=== PATIENT | female | born 1940 | race Two or more races ===

== ENCOUNTER 2017-10-20 03:38 | Inpatient (IN) | payer OTHER, MEDICARE ==
[~2017-10-20] VITALS: Ht 160 cm; Wt 93.8 kg
[2017-10-20] MEDS ORDERED: ALUMINUM/MAGNESIUM/SIMETH 30 ML CUP PO PRN (05:15)
[2017-10-20] MEDS ORDERED: MAGNESIUM HYDROXIDE SUSP 30 ML CUP PO PRN (05:15)
[2017-10-20] MEDS ORDERED: LORazepam 2 MG/ML VIAL - age > 65 yrs IM PRN (05:15)
[2017-10-20] MEDS ORDERED: LORazepam 0.5 MG TAB age > 65 yrs PO PRN (05:15)
[2017-10-20] MEDS ORDERED: ACETAMINOPHEN 325 MG TAB PO PRN (05:15)
[2017-10-20 05:17] VITALS: BP 165/73; PULSE 52; RESP 18; TEMP 97.7; O2SAT 96
[2017-10-20] MEDS ORDERED: MIRTA15 PO ×2 (06:04→15:38)
[2017-10-20] MEDS ORDERED: QUET1TAB7 PO (06:05)
[2017-10-20] MEDS ORDERED: LABE100T2 PO ×2 (06:06→15:38)
[2017-10-20] MEDS: LABETALOL HCL 100 MG TAB PO SCH ×2 (11:00→21:10)
[2017-10-20] MEDS ORDERED: diphenhydrAMINE HCL 50 MG CAP PO PRN (11:30)
--- NOTE | 2017-10-20 12:55 | PD.CONS ---
HPI Service [facility] Hospitalists Consult Requested By Reason for Consult Medical management Primary Care Physician Unknown Diagnoses: History of Present Illness 77-year-old female with PMH of HTN, DM, hypothyroidism, schizophrenia, and depression admitted to inpatient psychiatry unit after making statements of harming herself. Patient apparently got into an argument with daughter and made statement "I should just kill myself then I should just kill myself". Daughter was concerned as patient has had prior attempts of suicide with medication ingestion. Police was called and according to repot patient was noted to have slurred speech and was stumbling. She was transported to [facility] for evaluation of possible OD. She was subsequently medically cleared and has been admitted to [facility] psych unit for further evaluation. [facility] consulted to assist with medical management. Patient is a pleasant female who is Lithuanian speaking. She is ambulating without assistance and appears to be in no acute distress. She is examined in her room. She is able to provide me with her medical history as well as some of her medications, but is not sure of dosing. She repots checking her blood sugar three times a day with insulin sliding scale coverage. She also reports taking insulin from a pen that she does once daily. She denies any fevers, chills, nausea, vomiting, diarrhea, headache, dizziness, light headedness, cough, SOB, chest pain, dysuria or constipation. Review of Systems Except as stated in HPI: all other systems reviewed are Neg Past Family Social History Allergies: Coded Allergies: No Known Allergies (Verified Allergy, Unknown, 10/20/17) Past Medical History DM hypothyroidism HTN schizophrenia depression Past Surgical History Right knee replacement Appendectomy Cholecystectomy Tonsillectomy Reported Medications Reported Meds & Active Scripts Active Reported Lantus Solostar Pen Inj (Insulin Glargine) 300 Unit/3 Ml Pen 50 Units SQ DAILY NEB Levothyroxine (Levothyroxine Sodium) 88 Mcg Tab 88 Mcg PO DAILY Glipizide ER (Glipizide) 10 Mg Valentina 20 Mg PO DAILY Take with breakfast or first main meal of the day Levemir Inj (Insulin Detemir) 1,000 unit/ 10 ML Vial 25 Units SQ HS Do not mix with any other Insulin. Abilify (Aripiprazole) 10 Mg Tab 5 Mg PO DAILY Amlodipine-Valsartan 10-160 Mg Tab 1 Tab PO DAILY Metoprolol Tartrate 50 Mg Tab 50 Mg PO BID Mirtazapine 15 Mg Tab 15 Mg PO HS Zoloft (Sertraline HCl) 100 Mg Tab 150 Mg PO DAILY Labetalol (Labetalol HCl) 100 Mg Tab 100 Mg PO BID Lipitor (Atorvastatin Calcium) 80 Mg Tab 80 Mg PO HS Seroquel (Quetiapine Fumarate) 200 Mg Tab 325 Mg PO HS Quetiapine (Quetiapine Fumarate) 25 Mg Tab 25 Mg PO HS Mirtazapine 15 Mg Tab 15 Mg PO HS Active Ordered Medications Current Medications Medications (Trade) Dose Ordered Sig/Eugenia Route Start Time Stop Time Status Last Admin (Ativan) 0.5 mg Q12H PRN PO 10/20/17 05:15 (Ativan Inj) 0.5 mg Q12H PRN IM 10/20/17 05:15 (Tylenol) 650 mg Q4H PRN PO 10/20/17 05:15 (Milk Of Magnesia Liq) 30 ml DAILY PRN PO 10/20/17 05:15 (Mag-Al Plus Susp Liq) 30 ml Q6H PRN PO 10/20/17 05:15 (Trandate) 100 mg BID PO 10/20/17 11:00 10/20/17 11:00 (Remeron) 15 mg HS PO 10/20/17 21:00 (SEROquel) 25 mg HS PO 10/20/17 21:00 (Benadryl) 50 mg HS PRN PO 10/20/17 11:30 (D50w (Vial) Inj) 50 ml UNSCH PRN IV PUSH 10/20/17 13:30 (Glucagon Inj) 1 mg UNSCH PRN OTHER 10/20/17 13:30 (NovoLOG SUPPLEMENTAL SCALE) 1 ACHS SLIDING SCALE SQ 10/20/17 17:00 Family History Father: heart disease (CABG) Social History Denies tobacco, alcohol, or illicit drug use Physical Exam Vital Signs Vital Signs Date Time Temp Pulse Resp B/P (MAP) Pulse Ox O2 Delivery O2 Flow Rate FiO2 10/20/17 05:17 97.7 52 18 165/73 (103) 96 Physical Exam GENERAL: This is an obese, well-developed female, in no apparent distress. SKIN: Cool and dry. HEAD: Atraumatic. Normocephalic. EYES: Pupils equal round and reactive. Extraocular motions intact. No scleral icterus. No injection or drainage. ENT: Nose without bleeding, purulent drainage. Throat without erythema. Airway patent. NECK: Trachea midline. No JVD. Supple. CARDIOVASCULAR: Regular rate and rhythm without murmurs, gallops, or rubs. RESPIRATORY: Clear to auscultation. Breath sounds equal bilaterally. No wheezes , rales, or rhonchi. GASTROINTESTINAL: Abdomen soft, non-tender, nondistended. Normoactive bowel sounds. MUSCULOSKELETAL: Extremities without clubbing, cyanosis, or edema. No joint tenderness, effusion, or edema noted. NEUROLOGICAL: Awake and alert. Cranial nerves II through XII grossly intact. Motor and sensory grossly within normal limits. Five out of 5 muscle strength in all muscle groups. Normal speech. Assessment and Plan Assessment and Plan 77-year-old female with PMH of HTN, DM, hypothyroidism, schizophrenia, and depression admitted to inpatient psychiatry unit after making statements of harming herself. Patient apparently got into an argument with daughter and made statement "I should just kill myself then I should just kill myself". Daughter was concerned as patient has had prior attempts of suicide with medication ingestion. Police was called and according to repot patient was noted to have slurred speech and was stumbling. She was transported to [facility] for evaluation of possible OD. She was subsequently medically cleared and has been admitted to [facility] for further evaluation. [facility] consulted to assist with medical management. Depression - Treatment plan per psychiatry Diabetes mellitus - Med rec with Lantus 50 units daily, Levemir 25 units HS, Glipizide 20mg daily - 1800 ADA diet, Accu checks ACHS with NovoLog ISS - BS today around 4pm was 98. Hold off on long acting insulin, continue monitoring BS and adjust accordingly. - Check hemoglobin A1C HTN - Med rec. with Labetalol 100mg BID, Metoprolol 50mg BID, and Amlodipine- Valsartan 10-160mg daily - Labetalol 100mg BID resumed - BP recorded in EMR 165/73 pulse 52. BP this afternoon 180/86 pulse 59. - Will continue Valsartan, PRN po hydralazine for SBP>18 or DPB>100 - Monitor BP and HR and adjust meds accordingly Hypothyroidism - Continue home dose of Levothyroxine DVT prophylaxis-ambulation Discussed with nurse. Thank you for this consultation, will continue to follow along. Demetrius Hutchinson Oct 20, 2017 12:55
[2017-10-20] MEDS ORDERED: DEXTROSE 50% IN WATER 50 ML VIAL(D50) IV PUSH PRN (13:30)
[2017-10-20] MEDS ORDERED: GLUCAGON 1 MG/ML VIAL OTHER PRN (13:30)
--- NOTE | 2017-10-20 14:23 | HHI.PYPN ---
Subjective Remarks The patient is a 77 year-old [place] woman, admitted on the Gonzalez act after stated that she wants to kill herself by overdosing, she has psychiatric history of depression and schizophrenia, medical history of hypertension, diabetes. Consulted to me for second opinion. On psychiatric evaluation today the patient is calm, cooperative, she reports that she does not want to live anymore "if my is going to be in a correction and I have to live alone the rest of my life". Patient reports feeling hopeless, helpless, very depressed. She reports suicidal ideation, no plan at the moment. She is oriented 3, denies visual and auditory hallucinations. She reports difficulty sleeping at night, low energy, helplessness, hopelessness, increased sense of guiltiness, generalized pessimism. She denies the use of alcohol and illegal drugs. Mental Status Examination Appearance: Appropriate Consciousness: Alert Orientation: x4 Motor Activity: Normal gait Speech: Unremarkable Language: Adequate Fund of Knowledge: Adequate Attention and Concentration: Adequate Memory: Unremarkable Mood: Appropriate, Sad Affect: Sad Thought Process & Associations: Intact Thought Content: Appropriate Hallucination Type: None Delusion Type: None Suicidal Ideation: Yes Suicidal Plan: No Suicidal Intention: No Homicidal Ideation: No Homicidal Plan: No Homicidal Intention: No Insight: Poor Judgment: Poor Results Vitals/IOs Vital Signs Date Time Temp Pulse Resp B/P (MAP) Pulse Ox O2 Delivery O2 Flow Rate FiO2 10/20/17 05:17 97.7 52 18 165/73 (103) 96 Intake and Output 10/20/17 10/20/17 10/21/17 08:00 16:00 00:00 Intake Total 120 ml 240 ml Balance 120 ml 240 ml Assessment & Plan Problem List: (1) Adjustment disorder with depressed mood ICD Codes: F43.21 - Adjustment disorder with depressed mood Assessment & Plan: I have seen and examined this patient, reviewed documentation, discussed the case with Dr. Baker, I agree and concur with his assessment and plan. Consult appreciated. Assessment & Plan Estimated LOS: days Justification for Cont. Inpt. Patient is acutely suicidal, she needs to continue psychiatric hospitalization for stabilization and safety. Keven Schmitt MD Oct 20, 2017 14:23
--- NOTE | 2017-10-20 15:11 | EKG ---
Date Performed: 10/20/2017 Time Performed: 11:43:52 PTAGE: 77 years EKG: Sinus rhythm WITH SINUS ARRHYTHMIA NONSPECIFIC ST & T-WAVE ABNORMALITY Since the previous tracing, no significant change noted BORDERLINE ECG PREVIOUS TRACING : 04/28/2000 18.47 DOCTOR: Pb Corrales Interpretating Date/Time 10/20/2017 15:09:11
[2017-10-20] MEDS ORDERED: SERO200T PO (15:38)
[2017-10-20] MEDS ORDERED: ABIL10TA8 PO (15:38)
[2017-10-20] MEDS ORDERED: AMLO-168 PO (15:38)
[2017-10-20] MEDS ORDERED: LEVO88TA2 PO (15:38)
[2017-10-20] MEDS ORDERED: LANTINJ SQ (15:38)
[2017-10-20] MEDS ORDERED: METO50TA PO (15:38)
[2017-10-20] MEDS ORDERED: ZOLO100T PO (15:38)
[2017-10-20] MEDS ORDERED: LEVEMIR SQ (15:38)
[2017-10-20] MEDS ORDERED: LIPI80TA PO (15:38)
[2017-10-20] MEDS ORDERED: GLIP1TAB51 PO (15:38)
[2017-10-20] MEDS: INSULIN ASPART SUPPLEMENTAL SCALE SQ SCH ×2 (15:45→21:00)
[2017-10-20 16:00] VITALS: BP 182/86; PULSE 59; O2SAT 93
--- NOTE | 2017-10-20 16:48 | HHI.HP ---
Provisional Diagnosis Admission Date Oct 20, 2017 at 04:37 [place]. Adjustment disorder with depressed mood Certification of Person's Competence To Provide Express and Informed Consent I have personally examined Yareli Sibley , a person being served at [facility] on, Oct 20, 2017 16:48. Express and informed consent means consent voluntarily given in writing, by a competent person, after sufficient explanation and disclosure of the subject matter involved to enable the person to make a knowing and willful decision without any element of force, fraud, deceit, duress, or other form of constraint or coercion. This person is 18 years of age or older, is not now known to be incompetent to consent to treatment with a guardian advocate, and does not have a health care surrogate or proxy currently making medical treatment decisions. I have found this person to be one of the following: [] Competent to provide express and informed consent, as defined above, for voluntary admission to this facility and is competent to provide express and informed consent for treatment. He/she has the consistent capacity to make well reasoned, willful, and knowing decisions concerning his or her medical or mental health treatment. The person fully and consistently understands the purpose of the admission for examination/placement and is fully capable of personally exercising all rights assured under [place]xxx] Incompetent to provide express and informed consent to voluntary admission , and this is incompetent to provide express and informed consent to treatment. The person must be transferred to involuntary status and a petition for a guardian advocate filed with the Circuit Court. [] Refusing to provide express and informed consent to voluntary admission but is competent to provide express and informed consent for treatment. The person must be discharged or transferred to involuntary status. Form shall be completed within 24 hours of a person's arrival at the receiving facility and filed in the clinical record of each person: 1. Admitted on a voluntary basis 2. Permitted to provide express and informed consent to his/her own treatment 3. Allowed to transfer from involuntary to voluntary status 4. Prior to permitting a person to consent to his or her own treatment after having been previously found incompetent to consent to treatment. History of Present Illness Capacity: Has Capacity HPI Patient is a 77 y/o woman, , domiciled alone, unemployed, supported by alf benefits, with past psychiatric history of schizophrenia and depression, three previous psychiatric admissions (last 3 weeks ago in [place] after suicide attempt), one previous suicide attempt, no history of self injurious behavior, with past medical history of diabetes who was brought in under [place] Act after arguement with daughter and stating that she should just kill herself which patient was admitted to the inpatient psychiatry unit for further evaluation and management. Patient was found lying on hospital bed, calm and cooperative with interview. Patient states that she was recently admitted to a hospital in [place] after a suicide attempt via overdose with 28 tablets of Seroquel which at that time had also planned with her to overdose together which DCF got involved and subsequently removed the into an anonymous fpc and the patient was admitted psychiatrically. Upon her discharge patient returned home, followed up wtih Dr. Childress two weeks ago and prior to this admission had an argument with her daughter which she was wanting to visit her . She states that her has dementia and daughter had argued that the patient tried to kill her . Patient recalls her overdose which she had planned to take 28 tablets and had given her unknown amount of tablets as well to end their lives together. After the argument patient stated, "I done care if i " but denies having planned to end her life or intent to do so this time. She reports feeling depressed because she wants to see her and have him home. At this time she denies SI, HI, AVH and is alert and oriented x 3. Family psychiatric history: denies Past psychiatric history: prior diagnosis of schizophrenia, depression, three prior psychiatric admissions (last three weeks ago in [place]), one prior suicide attemp via overdose as stated above, no self injurious behvavior. Outpatient psychiatrist, Dr. Childress, last seen two weeks ago. Substance use history: denies Past medical history: DM Allergies: NKDA Social history: , lives alone, unemployed on alf benefits, no access to firearms. Review of Systems Except as stated in HPI: all other systems reviewed are Neg Past Psych History Violence risk - others (6 mos) low Violence risk - self (6 mos) elevated due to recent suicide attempt and recent suicidal statement Substance Abuse History Drugs/Alcohol past 12 months denies Past Family Social History Coded Allergies: No Known Allergies (Verified Allergy, Unknown, 10/20/17) Reported Medications Insulin Glargine Inj (Lantus Solostar Pen Inj) 300 Unit/3 Ml Pen, 50 UNITS SQ DAILY NEB for Blood Sugar Management, PEN 0 Refills 10/20/17 Levothyroxine (Levothyroxine) 88 Mcg Tab, 88 MCG PO DAILY for Thyroid, #30 TAB 0 Refills 10/20/17 Glipizide ER (Glipizide ER) 10 Mg Valentina, 20 MG PO DAILY for Blood Sugar Management, #30 TAB 0 Refills Take with breakfast or first main meal of the day 10/20/17 Insulin Detemir Inj (Levemir Inj) 1,000 unit/ 10 ML Vial, 25 UNITS SQ HS for Blood Sugar Management, VIAL 0 Refills Do not mix with any other Insulin. 10/20/17 Aripiprazole (Abilify) 10 Mg Tab, 5 MG PO DAILY, #30 TAB 0 Refills 10/20/17 Amlodipine-Valsartan (Amlodipine-Valsartan) 10-160 Mg Tab, 1 TAB PO DAILY for Blood Pressure Management, #30 TAB 0 Refills 10/20/17 Metoprolol Tartrate (Metoprolol Tartrate) 50 Mg Tab, 50 MG PO BID, #60 TAB 0 Refills 10/20/17 Mirtazapine (Mirtazapine) 15 Mg Tab, 15 MG PO HS for Depression Control, #30 TAB 0 Refills 10/20/17 Sertraline (Zoloft) 100 Mg Tab, 150 MG PO DAILY, #30 TAB 0 Refills 10/20/17 Labetalol (Labetalol) 100 Mg Tab, 100 MG PO BID for Blood Pressure Management, TAB 0 Refills 10/20/17 Atorvastatin (Lipitor) 80 Mg Tab, 80 MG PO HS for Cholesterol Management, #30 TAB 0 Refills 10/20/17 Quetiapine (Seroquel) 200 Mg Tab, 325 MG PO HS, #30 TAB 0 Refills 10/20/17 Quetiapine (Quetiapine) 25 Mg Tab, 25 MG PO HS, #30 TAB 0 Refills 10/20/17 Mirtazapine (Mirtazapine) 15 Mg Tab, 15 MG PO HS for Depression Control, #30 TAB 0 Refills 10/20/17 Current Medications Medications (Trade) Dose Ordered Sig/Eugenia Route Start Time Stop Time Status Last Admin (Ativan) 0.5 mg Q12H PRN PO 10/20/17 05:15 (Ativan Inj) 0.5 mg Q12H PRN IM 10/20/17 05:15 (Tylenol) 650 mg Q4H PRN PO 10/20/17 05:15 (Milk Of Magnesia Liq) 30 ml DAILY PRN PO 10/20/17 05:15 (Mag-Al Plus Susp Liq) 30 ml Q6H PRN PO 10/20/17 05:15 (Trandate) 100 mg BID PO 10/20/17 11:00 10/20/17 11:00 (Remeron) 15 mg HS PO 10/20/17 21:00 (SEROquel) 25 mg HS PO 10/20/17 21:00 (Benadryl) 50 mg HS PRN PO 10/20/17 11:30 (D50w (Vial) Inj) 50 ml UNSCH PRN IV PUSH 10/20/17 13:30 (Glucagon Inj) 1 mg UNSCH PRN OTHER 10/20/17 13:30 (NovoLOG SUPPLEMENTAL SCALE) 1 ACHS SLIDING SCALE SQ 10/20/17 17:00 10/20/17 15:45 (Lipitor) 80 mg HS PO 10/20/17 21:00 (Synthroid) 88 mcg DAILY@0600 PO 10/21/17 06:00 (Diovan) 160 mg DAILY PO 10/21/17 09:00 (Apresoline) 25 mg Q8HR PRN PO 10/20/17 16:30 Family Psych History denies Social History , lives alone, unemployed on alf benefits, no access to firearms. Patient's Strengths (min. 2) verbal and communicative Physical Exam Not noted to be in acute distress, no gross motor abnormalities, no tremor or EPS, no psychomotor agitation or retardation. Vital Signs Vital Signs Date Time Temp Pulse Resp B/P (MAP) Pulse Ox O2 Delivery O2 Flow Rate FiO2 10/20/17 16:00 59 182/86 (118) 93 10/20/17 05:17 97.7 18 I/O 10/20/17 10/20/17 10/21/17 08:00 16:00 00:00 Intake Total 120 ml 240 ml Balance 120 ml 240 ml Mental Status Examination Appearance: Appropriate Consciousness: Alert Orientation: x4 Motor Activity: Normal gait Speech: Unremarkable Language: Adequate Fund of Knowledge: Adequate Attention and Concentration: Adequate Memory: Unremarkable Mood: Appropriate, Sad Affect: Sad Thought Process & Associations: Intact Thought Content: Appropriate Hallucination Type: None Delusion Type: None Suicidal Ideation: Yes Suicidal Plan: No Suicidal Intention: No Homicidal Ideation: No Homicidal Plan: No Homicidal Intention: No Insight: Poor Judgment: Poor Assessment & Plan Problem List: (1) Adjustment disorder with depressed mood ICD Codes: F43.21 - Adjustment disorder with depressed mood Assessment & Plan Estimated LOS: 5-7 days. Patient is a 77 y/o [place] woman, who carries a diagnosis of schizophrenia, prior psychiatric admissions, one prevoius suicide attempt who recently made suicidal statement, which she is admitted for further observation and management. Petition for involuntary admission started, second opinion requested. Continue mirtazapine 15mg PO HS for depression, quetiapine 25mg PO HS for mood stabilization with upward titration Continue to monitor mood and behavior. Collateral informaiton pending from daughter. Discharge planning in progress. Discharge Planning To be determined. Rodríguez Baker MD Oct 20, 2017 16:48
[2017-10-20 18:00] VITALS: BP 170/84; PULSE 61; RESP 18; TEMP 98.2; O2SAT 94
[2017-10-20] MEDS ORDERED: MIRTAZAPINE 15 MG TAB PO SCH (21:00)
[2017-10-20] MEDS: QUEtiapine FUMARATE 25 MG TAB PO SCH (21:10)
[2017-10-20] MEDS: ATORVASTATIN 40 MG TAB PO SCH (21:10)
[2017-10-21 05:27] VITALS: BP 170/74; PULSE 55; RESP 16; TEMP 98.3; O2SAT 93
[2017-10-21] MEDS: LEVOTHYROXINE SODIUM 88 MCG TAB PO SCH (05:53)
[2017-10-21] MEDS: INSULIN ASPART SUPPLEMENTAL SCALE SQ SCH ×4 (07:29→20:28)
[2017-10-21] MEDS: VALSARTAN 160 MG TAB PO SCH (08:20)
[2017-10-21 08:28] LABS: HEMATOCRIT 41.7 % (35.0-46.0); HEMOGLOBIN 13.7 GM/DL (11.6-15.3); MEAN CELL VOLUME 84.2 FL (80.0-100.0); MEAN CORPUSCULAR HEMOGLOBIN 27.5 PG (27.0-34.0); MEAN CORPUSCULAR HGB CONC 32.7 % (32.0-36.0); MEAN PLATELET VOLUME 9.8 FL (7.0-11.0); PLATELET COUNT 262 TH/MM3 (150-450); RED BLOOD COUNT 4.96 MIL/MM3 (4.00-5.30); RED CELL DISTRIBUTION WIDTH 16.1 % (11.6-17.2); WHITE BLOOD COUNT 8.3 TH/MM3 (4.0-11.0)
[2017-10-21 08:35] LABS: BICARBONATE 26.8 MEQ/L (21.0-32.0); CALCIUM 8.9 MG/DL (8.5-10.1); CHLORIDE 108 MEQ/L (98-107); GLOMERULAR FILTRATION RATE 44 ML/MIN (>89); GLUCOSE,RANDOM 96 MG/DL (74-106); SODIUM (NA) 144 MEQ/L (136-145)
[2017-10-21] MEDS: LABETALOL HCL 100 MG TAB PO SCH (08:37)
[2017-10-21 08:46] LABS: BLOOD UREA NITROGEN 18 MG/DL (7-18)
--- NOTE | 2017-10-21 10:12 | HHI.PR ---
Subjective Remarks Follow up on patient with HTN, DM. Patient seen and examined. Patient denies any new medical complaints. Denies any headache, dizziness, fever or chills. Denies any chest pain or dyspnea. Denies any nausea, vomiting or abdominal pain. Objective Vitals Vital Signs Date Time Temp Pulse Resp B/P (MAP) Pulse Ox O2 Delivery O2 Flow Rate FiO2 10/21/17 05:27 98.3 55 16 170/74 (106) 93 10/20/17 18:00 98.2 61 18 170/84 (112) 94 10/20/17 16:00 59 182/86 (118) 93 I/O 10/20/17 10/20/17 10/20/17 10/21/17 10/21/17 10/21/17 07:00 15:00 23:00 07:00 15:00 23:00 Intake Total 360 ml Balance 360 ml Intake Oral 360 ml Result Diagram: 10/21/17 0748 10/21/17 0748 Objective Remarks GENERAL: This is an obese, well-developed female, in no apparent distress. Awake and alert. Lying in hospital bed. SKIN: Cool and dry. HEAD: Atraumatic. Normocephalic. EYES: Extraocular motions intact. No scleral icterus. No injection or drainage. ENT: Nose without bleeding, purulent drainage. Throat without erythema. Airway patent. MMM. NECK: Trachea midline. CARDIOVASCULAR: Regular rate and rhythm without murmurs, gallops, or rubs. RESPIRATORY: Nonlabored. Clear to auscultation. Breath sounds equal bilaterally. No wheezes, rales, or rhonchi. GASTROINTESTINAL: Abdomen soft, non-tender, nondistended. Normoactive bowel sounds. MUSCULOSKELETAL: Extremities without clubbing, cyanosis, or edema. Bilateral calves supple, NTTP. NEUROLOGICAL: Awake and alert. Cranial nerves II through XII grossly intact. Motor and sensory grossly within normal limits. Nonfocal. Normal speech. PSYCHIATRIC: Calm and pleasant. Medications and IVs Current Medications Medications (Trade) Dose Ordered Sig/Eugenia Route Start Time Stop Time Status Last Admin (Ativan) 0.5 mg Q12H PRN PO 10/20/17 05:15 (Ativan Inj) 0.5 mg Q12H PRN IM 10/20/17 05:15 (Tylenol) 650 mg Q4H PRN PO 10/20/17 05:15 (Milk Of Magnesia Liq) 30 ml DAILY PRN PO 10/20/17 05:15 (Mag-Al Plus Susp Liq) 30 ml Q6H PRN PO 10/20/17 05:15 (Trandate) 100 mg BID PO 10/20/17 11:00 10/20/17 21:10 (Remeron) 15 mg HS PO 10/20/17 21:00 10/20/17 21:10 (SEROquel) 25 mg HS PO 10/20/17 21:00 10/20/17 21:10 (Benadryl) 50 mg HS PRN PO 10/20/17 11:30 (D50w (Vial) Inj) 50 ml UNSCH PRN IV PUSH 10/20/17 13:30 (Glucagon Inj) 1 mg UNSCH PRN OTHER 10/20/17 13:30 (NovoLOG SUPPLEMENTAL SCALE) 1 ACHS SLIDING SCALE SQ 10/20/17 17:00 10/20/17 15:45 (Lipitor) 80 mg HS PO 10/20/17 21:00 10/20/17 21:10 (Synthroid) 88 mcg DAILY@0600 PO 10/21/17 06:00 10/21/17 05:53 (Diovan) 160 mg DAILY PO 10/21/17 09:00 10/21/17 08:20 (Apresoline) 25 mg Q8HR PRN PO 10/20/17 16:30 (Norvasc) 10 mg DAILY PO 10/21/17 09:00 10/21/17 09:48 A/P Assessment and Plan 77-year-old female with PMH of HTN, DM, hypothyroidism, schizophrenia, and depression admitted to inpatient psychiatry unit after making statements of harming herself. Patient apparently got into an argument with daughter and made statement "I should just kill myself then I should just kill myself". Daughter was concerned as patient has had prior attempts of suicide with medication ingestion. Police was called and according to repot patient was noted to have slurred speech and was stumbling. She was transported to [facility] for evaluation of possible OD. She was subsequently medically cleared and has been admitted to [place] psych unit for further evaluation. [facility] consulted to assist with medical management. Suicidal ideation Recent suicide attempt Depression -Treatment plan per psychiatry Diabetes mellitus -Med rec with Lantus 50 units daily, Levemir 25 units HS, Glipizide 20mg daily -BS running low, 48. Continue to hold all long acting insulin and Glipizide -1800 ADA diet, Accu checks ACHS with NovoLog ISS -hemoglobin A1C pending HTN -Continued on Valsartan only, BP still not well controlled. Resume home dose of Norvasc 10mg daily -continue to monitor BP and adjust treatment accordingly Bradycardia -patient has no complaints of chest pain -hold BB -obtain TSH level -monitor HR ?JAVY on possible CKD -Cr 1.20/GFR 44 -no baseline labs for comparison -avoid nephrotoxic agents -encourage oral intake -recommend recheck BMP in 2 days Hypothyroidism -Continue home dose of Levothyroxine -Obtain TSH level DVT prophylaxis-ambulation Lida Santo Oct 21, 2017 10:12
--- NOTE | 2017-10-21 17:05 | HHI.PYPN ---
Subjective Remarks Patient seen for follow, chart reviewed. Discussion nursing staff reported the patient had a cooperative medications. Patient found in the room noted B, cooperative. Patient states that she is feeling "good, calm". Patient states that she had work with physical therapy today, denying feeling depressed but when asked about suicide ideation she states "I do not know". Patient states she feels alone at home missing her to be tearful during interview when speaking about circumstances of brought to the hospital. Patient states that she just wants to be able to see her to know that he is doing well but aware that DCF is involved in at this time patient reportedly not allowed to be able to contact due to concerns of previous suicide attempt. Patient has not yet spoken to her daughter since admission. Review of Systems Except as stated in HPI: all other systems reviewed are Neg Mental Status Examination Appearance: Appropriate Consciousness: Alert Orientation: x4 Motor Activity: Normal gait Speech: Unremarkable Language: Adequate Fund of Knowledge: Adequate Attention and Concentration: Adequate Memory: Unremarkable Mood: Appropriate, Sad Affect: Sad Thought Process & Associations: Intact Thought Content: Appropriate Hallucination Type: None Delusion Type: None Suicidal Ideation: Yes Suicidal Plan: No Suicidal Intention: No Homicidal Ideation: No Homicidal Plan: No Homicidal Intention: No Insight: Poor Judgment: Poor Results Labs Labs reviewed Test 10/21/17 07:48 White Blood Count 8.3 TH/MM3 Red Blood Count 4.96 MIL/MM3 Hemoglobin 13.7 GM/DL Hematocrit 41.7 % Mean Corpuscular Volume 84.2 FL Mean Corpuscular Hemoglobin 27.5 PG Mean Corpuscular Hemoglobin Concent 32.7 % Red Cell Distribution Width 16.1 % Platelet Count 262 TH/MM3 Mean Platelet Volume 9.8 FL Hematology Comments Blood Urea Nitrogen 18 MG/DL Creatinine 1.20 MG/DL Random Glucose 96 MG/DL Calcium Level 8.9 MG/DL Sodium Level 144 MEQ/L Potassium Level 3.7 MEQ/L Chloride Level 108 MEQ/L Carbon Dioxide Level 26.8 MEQ/L Anion Gap 9 MEQ/L Estimat Glomerular Filtration Rate 44 ML/MIN Thyroid Stimulating Hormone 3rd Gen 2.790 uIU/ML Vitals/IOs Vital Signs Date Time Temp Pulse Resp B/P (MAP) Pulse Ox O2 Delivery O2 Flow Rate FiO2 10/21/17 05:27 98.3 55 16 170/74 (106) 93 Intake and Output 10/21/17 10/21/17 10/21/17 07:59 15:59 23:59 Intake Total 240 ml Balance 240 ml Assessment & Plan Problem List: (1) Adjustment disorder with depressed mood ICD Codes: F43.21 - Adjustment disorder with depressed mood Assessment & Plan Patient this time and I will denying feeling depressed is noted to be tearful and dysphoric during interview speaking with her and continues to have vague suicide ideations. We will increase mirtazapine to 30 mg p.o. daily continue Seroquel 25 mg p.o. at bedtime. Continue monitor mood and behavior. Discharge planning in progress. Justification for Cont. Inpt. At risk for further decompensation at lower level of care. Rodríguez Baker MD Oct 21, 2017 17:05
[2017-10-21] MEDS: hydrALAZINE HCL 25 MG TAB PO PRN (17:52)
[2017-10-21 18:03] VITALS: BP 173/100; PULSE 69; RESP 18; O2SAT 95
[2017-10-21] MEDS: ATORVASTATIN 40 MG TAB PO SCH (20:23)
[2017-10-21] MEDS: MIRTAZAPINE 15 MG TAB PO SCH (20:23)
[2017-10-21] MEDS: QUEtiapine FUMARATE 25 MG TAB PO SCH (20:23)
[2017-10-22 05:00] VITALS: BP 190/85; PULSE 65; RESP 18; TEMP 97.5
[2017-10-22] MEDS: LEVOTHYROXINE SODIUM 88 MCG TAB PO SCH ×2 (05:37→06:00)
[2017-10-22] MEDS: hydrALAZINE HCL 25 MG TAB PO PRN (05:58)
[2017-10-22] MEDS: INSULIN ASPART SUPPLEMENTAL SCALE SQ SCH ×4 (08:00→20:46)
[2017-10-22] MEDS: VALSARTAN 160 MG TAB PO SCH (09:00)
[2017-10-22] MEDS ORDERED: hydrALAZINE HCL 25 MG TAB PO ONE (11:30)
[2017-10-22] MEDS ORDERED: cloNIDine HCL 0.1 MG TAB PO PRN (11:30)
--- NOTE | 2017-10-22 12:35 | HHI.PR ---
Subjective Remarks Follow up on patient with HTN, DM. Patient seen and examined. Patient complains her ears feel plugged. She denies any headache or dizziness. Denies any chest pain or dyspnea. Denies any N/V or abdominal pain. Discussed with XAVI Hua - poorly controlled BP. Objective Vitals Vital Signs Date Time Temp Pulse Resp B/P (MAP) Pulse Ox O2 Delivery O2 Flow Rate FiO2 10/22/17 05:00 97.5 65 18 190/85 (120) 10/21/17 18:03 69 18 173/100 (124) 95 I/O 10/21/17 10/21/17 10/21/17 10/22/17 10/22/17 10/22/17 07:00 15:00 23:00 07:00 15:00 23:00 Intake Total 360 ml 240 ml Balance 360 ml 240 ml Intake Oral 360 ml 240 ml Result Diagram: 10/21/1774710/21/17 0748 Objective Remarks GENERAL: This is an obese, well-developed female, in no apparent distress. Awake and alert. Sitting up in dayroom. Appears comfortable. SKIN: Cool and dry. HEAD: Atraumatic. Normocephalic. EYES: Extraocular motions intact. No scleral icterus. No injection or drainage. ENT: Nose without bleeding, purulent drainage. Airway patent. MMM. NECK: Trachea midline. CARDIOVASCULAR: Regular rate and rhythm without murmurs, gallops, or rubs. RESPIRATORY: Nonlabored. Clear to auscultation. Breath sounds equal bilaterally. No wheezes, rales, or rhonchi. GASTROINTESTINAL: Abdomen soft, non-tender, nondistended. Normoactive bowel sounds. MUSCULOSKELETAL: Extremities without clubbing, cyanosis, or edema. Bilateral calves supple, NTTP. NEUROLOGICAL: Awake and alert. Cranial nerves II through XII grossly intact. Motor and sensory grossly within normal limits. Nonfocal. Normal speech. PSYCHIATRIC: Calm and pleasant. Medications and IVs Current Medications Medications (Trade) Dose Ordered Sig/Eugenia Route Start Time Stop Time Status Last Admin (Ativan) 0.5 mg Q12H PRN PO 10/20/17 05:15 10/21/17 18:35 (Ativan Inj) 0.5 mg Q12H PRN IM 10/20/17 05:15 (Tylenol) 650 mg Q4H PRN PO 10/20/17 05:15 (Milk Of Magnesia Liq) 30 ml DAILY PRN PO 10/20/17 05:15 (Mag-Al Plus Susp Liq) 30 ml Q6H PRN PO 10/20/17 05:15 (SEROquel) 25 mg HS PO 10/20/17 21:00 10/21/17 20:23 (Benadryl) 50 mg HS PRN PO 10/20/17 11:30 (D50w (Vial) Inj) 50 ml UNSCH PRN IV PUSH 10/20/17 13:30 (Glucagon Inj) 1 mg UNSCH PRN OTHER 10/20/17 13:30 (NovoLOG SUPPLEMENTAL SCALE) 1 ACHS SLIDING SCALE SQ 10/20/17 17:00 10/21/17 16:23 (Lipitor) 80 mg HS PO 10/20/17 21:00 10/21/17 20:23 (Synthroid) 88 mcg DAILY@0600 PO 10/21/17 06:00 10/21/17 05:53 (Diovan) 160 mg DAILY PO 10/21/17 09:00 10/22/17 09:00 (Apresoline) 25 mg Q8HR PRN PO 10/20/17 16:30 10/22/17 05:58 (Norvasc) 10 mg DAILY PO 10/21/17 09:00 10/22/17 09:00 (Remeron) 30 mg HS PO 10/21/17 21:00 10/21/17 20:23 (Apresoline) 50 mg Q8HR PO 10/22/17 14:00 (Catapres) 0.1 mg Q6H PRN PO 10/22/17 11:30 A/P Assessment and Plan 77-year-old female with PMH of HTN, DM, hypothyroidism, schizophrenia, and depression admitted to inpatient psychiatry unit after making statements of harming herself. Patient apparently got into an argument with daughter and made statement "I should just kill myself then I should just kill myself". Daughter was concerned as patient has had prior attempts of suicide with medication ingestion. Police was called and according to repot patient was noted to have slurred speech and was stumbling. She was transported to [facility] for evaluation of possible OD. She was subsequently medically cleared and has been admitted to [facility] psych unit for further evaluation. [facility] consulted to assist with medical management. Suicidal ideation Recent suicide attempt Depression -Treatment plan per psychiatry Diabetes mellitus -Med rec with Lantus 50 units daily, Levemir 25 units HS, Glipizide 20mg daily -BS running low. Continue to hold all long acting insulin and Glipizide -1800 ADA diet, Accu checks ACHS with NovoLog ISS - will decrease accucheks to BID, if BS remain well controlled, will discontinue accucheks all together. -hemoglobin A1C pending HTN, not controlled -Continue on Valsartan 150mg and Norvasc 10mg daily -Given Hydralazine 25mg at 6am and still with SBP 200 at 11am. Begin Hydralazine 50mg TID. -Clonidine prn with parameters -continue to monitor BP and adjust treatment accordingly Bradycardia -patient has no complaints of chest pain -hold BB -TSH level 2.790 -monitor HR ?JAVY on possible CKD -Cr 1.20/GFR 44 -no baseline labs for comparison -avoid nephrotoxic agents -encourage oral intake -recommend recheck BMP in 1 days Hypothyroidism -Continue home dose of Levothyroxine -TSH level 2.790 DVT prophylaxis-ambulation Lida Santo Oct 22, 2017 12:35
[2017-10-22 13:48] VITALS: BP 181/108; PULSE 70; RESP 18; TEMP 98.1; O2SAT 97
[2017-10-22] MEDS: hydrALAZINE HCL 10 MG TAB PO SCH ×2 (14:00→20:49)
[2017-10-22] MEDS ORDERED: hydrALAZINE HCL 10 MG TAB PO SCH (14:00)
[2017-10-22] MEDS ORDERED: cloNIDine HCL 0.1 MG TAB PO ONE (16:30)
[2017-10-22 16:45] LABS: HEMOGLOBIN A1C 6.6 % (4.3-6.0)
[2017-10-22 18:27] VITALS: BP 123/63; PULSE 74; RESP 18; TEMP 97.6; O2SAT 93
[2017-10-22 20:45] VITALS: BP 153/78; PULSE 73
[2017-10-22] MEDS: QUEtiapine FUMARATE 25 MG TAB PO SCH (20:48)
[2017-10-22] MEDS: MIRTAZAPINE 15 MG TAB PO SCH (20:49)
[2017-10-22] MEDS: ATORVASTATIN 40 MG TAB PO SCH (20:49)
[2017-10-23 05:59] VITALS: BP 148/75; PULSE 63; RESP 16; TEMP 97.4; O2SAT 94
[2017-10-23] MEDS: LEVOTHYROXINE SODIUM 88 MCG TAB PO SCH (06:08)
[2017-10-23] MEDS: hydrALAZINE HCL 10 MG TAB PO SCH (06:08)
[2017-10-23] MEDS: INSULIN ASPART SUPPLEMENTAL SCALE SQ SCH ×2 (08:00→11:02)
[2017-10-23 09:13] LABS: BICARBONATE 28.1 MEQ/L (21.0-32.0); CALCIUM 9.5 MG/DL (8.5-10.1); CREATININE 1.27 MG/DL (0.50-1.00)
[2017-10-23] MEDS: VALSARTAN 160 MG TAB PO SCH (09:16)
--- NOTE | 2017-10-23 11:46 | HHI.PR ---
Subjective Remarks Follow up on patient with HTN, DM. Patient seen and examined. Patient sitting in community room. States she feel well. Denies any complaints of dizziness, headache, fever, chills, nausea, dyspnea, chest pain or abdominal pain. Objective Vitals Vital Signs Date Time Temp Pulse Resp B/P (MAP) Pulse Ox O2 Delivery O2 Flow Rate FiO2 10/23/17 05:59 97.4 63 16 148/75 (99) 94 10/22/17 20:45 73 153/78 (103) 10/22/17 18:27 97.6 74 18 123/63 (83) 93 10/22/17 13:48 98.1 70 18 181/108 (132) 97 I/O 10/22/17 10/22/17 10/22/17 10/23/17 10/23/17 10/23/17 07:00 15:00 23:00 07:00 15:00 23:00 Intake Total 480 ml 720 ml 0 ml Balance 480 ml 720 ml 0 ml Intake Oral 480 ml 720 ml 0 ml # Voids 1 0 Result Diagram: 10/21/17 0748 10/23/17 0755 Objective Remarks GENERAL: This is an obese, well-developed female, in no apparent distress. Awake and alert. Sitting up in community room visiting with therapy dog. Appears comfortable. SKIN: Warm and dry. No obvious rash. HEAD: Atraumatic. Normocephalic. EYES: Extraocular motions intact. No scleral icterus. No injection or drainage. ENT: Nose without bleeding, purulent drainage. Airway patent. MMM. NECK: Trachea midline. CARDIOVASCULAR: Regular rate and rhythm without murmurs, gallops, or rubs. RESPIRATORY: Nonlabored. Clear to auscultation. Breath sounds equal bilaterally. No wheezes, rales, or rhonchi. GASTROINTESTINAL: Abdomen soft, non-tender, nondistended. Normoactive bowel sounds. MUSCULOSKELETAL: Extremities without clubbing, cyanosis, or edema. Bilateral calves supple, NTTP. NEUROLOGICAL: Awake and alert. Cranial nerves II through XII grossly intact. Motor and sensory grossly within normal limits. Nonfocal. Normal speech. PSYCHIATRIC: Calm and pleasant. Medications and IVs Current Medications Medications (Trade) Dose Ordered Sig/Eugenia Route Start Time Stop Time Status Last Admin (Ativan) 0.5 mg Q12H PRN PO 10/20/17 05:15 10/21/17 18:35 (Ativan Inj) 0.5 mg Q12H PRN IM 10/20/17 05:15 (Tylenol) 650 mg Q4H PRN PO 10/20/17 05:15 (Milk Of Magnesia Liq) 30 ml DAILY PRN PO 10/20/17 05:15 (Mag-Al Plus Susp Liq) 30 ml Q6H PRN PO 10/20/17 05:15 (SEROquel) 25 mg HS PO 10/20/17 21:00 10/22/17 20:48 (Benadryl) 50 mg HS PRN PO 10/20/17 11:30 (D50w (Vial) Inj) 50 ml UNSCH PRN IV PUSH 10/20/17 13:30 (Glucagon Inj) 1 mg UNSCH PRN OTHER 10/20/17 13:30 (NovoLOG SUPPLEMENTAL SCALE) 1 ACHS SLIDING SCALE SQ 10/20/17 17:00 10/21/17 16:23 (Lipitor) 80 mg HS PO 10/20/17 21:00 10/22/17 20:49 (Synthroid) 88 mcg DAILY@0600 PO 10/21/17 06:00 10/23/17 06:08 (Diovan) 160 mg DAILY PO 10/21/17 09:00 10/23/17 09:16 (Apresoline) 25 mg Q8HR PRN PO 10/20/17 16:30 10/22/17 05:58 (Norvasc) 10 mg DAILY PO 10/21/17 09:00 10/23/17 09:16 (Remeron) 30 mg HS PO 10/21/17 21:00 10/22/17 20:49 (Catapres) 0.1 mg Q6H PRN PO 10/22/17 11:30 (Apresoline) 75 mg Q8HR PO 10/23/17 14:00 A/P Assessment and Plan 77-year-old female with PMH of HTN, DM, hypothyroidism, schizophrenia, and depression admitted to inpatient psychiatry unit after making statements of harming herself. Patient apparently got into an argument with daughter and made statement "I should just kill myself then I should just kill myself". Daughter was concerned as patient has had prior attempts of suicide with medication ingestion. Police was called and according to repot patient was noted to have slurred speech and was stumbling. She was transported to [facility] for evaluation of possible OD. She was subsequently medically cleared and has been admitted to [facility] psych unit for further evaluation. [facility] consulted to assist with medical management. Suicidal ideation Recent suicide attempt Depression -Treatment plan per psychiatry Diabetes mellitus -Med rec with Lantus 50 units daily, Levemir 25 units HS, Glipizide 20mg daily -BS well controlled off any scheduled meds/insulin. Continue to hold all long acting insulin and Glipizide -1800 ADA diet, Accu checks ACHS with NovoLog ISS - will decrease accucheks to BID, if BS remain well controlled, will discontinue accucheks all together. -hemoglobin A1C 6.6 HTN, better controlled -Continue on Valsartan 160mg and Norvasc 10mg daily -Increase hydralazine to 75mg TID -Clonidine prn with parameters -continue to monitor BP and adjust treatment accordingly Bradycardia -patient has no complaints of chest pain -hold BB -TSH level 2.790 -monitor HR ?JAVY on possible CKD -Cr 1.20/GFR 44, repeat cr 1.27 -no baseline labs for comparison -avoid nephrotoxic agents -encourage oral intake -monitor renal indices as indicated Hypothyroidism -Continue home dose of Levothyroxine -TSH level 2.790 DVT prophylaxis-ambulation Lida Santo Oct 23, 2017 11:46
[2017-10-23] MEDS ORDERED: DIOV160T6 PO (11:49)
[2017-10-23] MEDS ORDERED: QUET1TAB7 PO (11:49)
[2017-10-23] MEDS ORDERED: MIRT30TA PO (11:49)
[2017-10-23] MEDS ORDERED: HYDR-3800 PO (11:49)
[2017-10-23] MEDS ORDERED: LIPI80TA PO (11:49)
[2017-10-23] MEDS ORDERED: LEVO88TA2 PO (11:49)
[2017-10-23] MEDS ORDERED: AMLO10 PO (11:49)
[2017-10-23 13:22] VITALS: BP 140/73; PULSE 70
[2017-10-23] MEDS ORDERED: hydrALAZINE HCL 50 MG TAB PO SCH (14:00)
--- NOTE | 2017-10-23 17:02 | HHI.DS ---
Psychiatry Discharge Summary Inpatient Psychiatric care?: Yes Advance Directive: No Reason Not Provided: Due to Patient Condition Mental Health AdvanceDirective: No Health Care Proxy: No Admission Admission Date Oct 20, 2017 at 04:37 Admission Diagnosis: (1) Adjustment disorder with depressed mood ICD Code: F43.21 - Adjustment disorder with depressed mood Brief History Patient is a 77 y/o woman, , domiciled alone, unemployed, supported by shelter benefits, with past psychiatric history of schizophrenia and depression, three previous psychiatric admissions (last 3 weeks ago in [place] after suicide attempt), one previous suicide attempt, no history of self injurious behavior, with past medical history of diabetes who was brought in under [place] after arguement with daughter and stating that she should just kill herself which patient was admitted to the inpatient psychiatry unit for further evaluation and management. Patient was found lying on hospital bed, calm and cooperative with interview. Patient states that she was recently admitted to a hospital in [place] after a suicide attempt via overdose with 28 tablets of Seroquel which at that time had also planned with her to overdose together which DCF got involved and subsequently removed the into an anonymous intermediate and the patient was admitted psychiatrically. Upon her discharge patient returned home, followed up wtih Dr. Childress two weeks ago and prior to this admission had an argument with her daughter which she was wanting to visit her . She states that her has dementia and daughter had argued that the patient tried to kill her . Patient recalls her overdose which she had planned to take 28 tablets and had given her unknown amount of tablets as well to end their lives together. After the argument patient stated, "I done care if i " but denies having planned to end her life or intent to do so this time. She reports feeling depressed because she wants to see her and have him home. At this time she denies SI, HI, AVH and is alert and oriented x 3. Family psychiatric history: denies Past psychiatric history: prior diagnosis of schizophrenia, depression, three prior psychiatric admissions (last three weeks ago in [place]), one prior suicide attemp via overdose as stated above, no self injurious behvavior. Outpatient psychiatrist, Dr. Childress, last seen two weeks ago. Substance use history: denies Past medical history: DM Allergies: NKDA Social history: , lives alone, unemployed on shelter benefits, no access to firearms. Tobacco Use In Past 30 Days: No Tobacco Past 30 Days Alcohol Use: Never Hospital Course Patient is a 77 y/o woman, , domiciled alone, unemployed, supported by shelter benefits, with past psychiatric history of schizophrenia and depression, three previous psychiatric admissions (last 3 weeks ago in [place] after suicide attempt), one previous suicide attempt, no history of self injurious behavior, with past medical history of diabetes who was brought in under [place] after arguement with daughter and stating that she should just kill herself which patient was admitted to the inpatient psychiatry unit for further evaluation and management. Patient was continued on mirtazapine and titrated to 30mg PO HS and continued on quetiapine 25mg PO HS which she tolerated well and noted to be calm and cooperative with staff. She was noted to be tearful at times, preoccupied with being able to see her again but was noted to be able to manage better as patient continued with treatment. Patient was noted to have been compliant with treatment, cooperative with staff; denying any further suicidal ideation. Upon discharge patient stated that she was feeling good, denied any psychotic symptoms, denied any SI, HI or delusions with no behavioral dyscontrol during hospitalization. Discussion with patients daughter prior to discharge had agreed to have patient in her home for support. Patient agreed to continue medication regimen and outpatient follow up for continuity of care. I have counseled the patient regarding warning signs for need to return to the psychiatric emergency room as part of a general safety plan. Patient advised to call 911 or go nearest ED in case of emergency. Patient agrees with plan. Results Blood Pressure 140 / 73 Vital Signs Date Time Temp Pulse Resp B/P (MAP) Pulse Ox O2 Delivery O2 Flow Rate FiO2 10/23/17 13:22 70 140/73 (95) 10/23/17 05:59 97.4 16 94 Laboratory Tests Test 10/21/17 07:48 10/23/17 07:55 Creatinine 1.20 MG/DL (0.50-1.00) 1.27 MG/DL (0.50-1.00) Chloride Level 108 MEQ/L (98-107) 108 MEQ/L (98-107) Estimat Glomerular Filtration Rate 44 ML/MIN (>89) 41 ML/MIN (>89) Hemoglobin A1c 6.6 % (4.3-6.0) Blood Urea Nitrogen 25 MG/DL (7-18) Random Glucose 146 MG/DL (74-106) Laboratory Results Test 10/21/17 07:48 Hemoglobin A1c 6.6 % (4.3-6.0) Summary of Procedures none Pending results at discharge: No Medications # of Antipsychotic meds at D/C: 1 Approp Antipsych med options 1 - Minimum of three failed multiple trials of monotherapy. 2 - Documented plan to taper to monotherapy due to previous use of multiple meds OR cross-taper in progress at D/C. 3 - Documentation of augmentation of Clozapine. 4 - Justification other than those listed in allowable values 1-3, document here : Discharge Discharge Date: Oct 23, 2017 Discharge Diagnosis: (1) Adjustment disorder with depressed mood ICD Code: F43.21 - Adjustment disorder with depressed mood Pt Condition on Discharge: Stable Discharge Disposition: Discharge Home Discharge Instructions Diet Instructions: Heart Healthy Diet Activities you can perform: Regular-No Restrictions Scheduled Appointment: [facility]lie Appointment Date: Oct 27, 2017 Appointment Time: 9:30am Discharge Time > 30 minutes Mental Status Examination Appearance: Appropriate Consciousness: Alert Orientation: x4 Motor Activity: Normal gait Speech: Unremarkable Language: Adequate Fund of Knowledge: Adequate Attention and Concentration: Adequate Memory: Unremarkable Mood: Appropriate Affect: Appropriate Thought Process & Associations: Intact, Goal directed Thought Content: Appropriate Hallucination Type: None Delusion Type: None Suicidal Ideation: No Suicidal Plan: No Suicidal Intention: No Homicidal Ideation: No Homicidal Plan: No Homicidal Intention: No Insight: Fair Judgment: Impulsive Discharge/Advance Care Plan Health Problems: (1) Adjustment disorder with depressed mood Goals to promote your health * To prevent worsening of your condition and complications * To maintain your health at the optimal level Directions to meet your goals Take your medications as prescribed Follow your dietary instruction Follow activity as directed Keep your appointments as scheduled Take your immunizations and boosters as scheduled If your symptoms worsen call your PCP, if no PCP go to Urgent Care Center or Emergency Room For 03/02 questions related to your inpatient stay or results of tests pending at discharge, please contact Dr. Rodríguez Baker at Smoking is Dangerous to Your Health. Avoid second hand smoking Rodríguez Baker MD Oct 23, 2017 17:02
--- NOTE | 2017-10-23 17:07 | HHI.PYPN ---
Subjective Remarks LATE ENTRY FOR 10/22/17 Patient seen for follow up; chart reviewed. Discussion with nursing staff reported that the patient with no behavioral disturbances, compliant with medications. Patient calm and cooperative, states sleeping well, continues to feel sad due to not being able to see her but denies SI stating that the last time was on day of admission. She denies any perceptual disturbances or delusions. Review of Systems Except as stated in HPI: all other systems reviewed are Neg Mental Status Examination Appearance: Appropriate Consciousness: Alert Orientation: x4 Motor Activity: Normal gait Speech: Unremarkable Language: Adequate Fund of Knowledge: Adequate Attention and Concentration: Adequate Memory: Unremarkable Mood: Sad Affect: Sad Thought Process & Associations: Intact Thought Content: Appropriate Hallucination Type: None Delusion Type: None Suicidal Ideation: No Suicidal Plan: No Suicidal Intention: No Homicidal Ideation: No Homicidal Plan: No Homicidal Intention: No Insight: Poor Judgment: Poor Results Labs Test 10/23/17 07:55 Blood Urea Nitrogen 25 MG/DL Creatinine 1.27 MG/DL Random Glucose 146 MG/DL Calcium Level 9.5 MG/DL Sodium Level 143 MEQ/L Potassium Level 3.9 MEQ/L Chloride Level 108 MEQ/L Carbon Dioxide Level 28.1 MEQ/L Anion Gap 7 MEQ/L Estimat Glomerular Filtration Rate 41 ML/MIN Vitals/IOs Vital Signs Date Time Temp Pulse Resp B/P (MAP) Pulse Ox O2 Delivery O2 Flow Rate FiO2 10/23/17 13:22 70 140/73 (95) 10/23/17 05:59 97.4 16 94 Intake and Output 10/23/17 10/23/17 10/23/17 07:59 15:59 23:59 Intake Total 0 ml 480 ml Balance 0 ml 480 ml Assessment & Plan Problem List: (1) Adjustment disorder with depressed mood ICD Codes: F43.21 - Adjustment disorder with depressed mood Assessment & Plan Patient continues to endorse feeling depressed but denying suicidal ideation. Continue current treatment, continue to monitor mood and behavior. Collateral from daughter to form discharge plan. Discharge planning in progress. Justification for Cont. Inpt. At risk for further decompensation at lower level of care. Rodríguez Baker MD Oct 23, 2017 17:07
--- NOTE | 2017-10-24 15:48 | PD.TTN ---
Patient Problems 1. Discharge planning 2. Medication compliance 3. Knowledge deficit 4. Lack of coping skills Progress Toward Goals Provider Present: Dr. Willi Patino Provider Input: 10/20 patient is new , she overdosed Psychiatric Counselors Present: Viky Bates LCSW Psych Therapist Input: 10/20 she is new, in [place] daugther is mentioned Group Spec/RT/OT/RAM Present: MELANIE Morales Group Spec/RT/OT/RAM Input: 10/20 patient is new Viky Bates LCSW Oct 24, 2017 15:48
== END 2017-10-23 13:53 | disposition home or self-care (01) | DRG 881 ==
LOC: H250 04:37
PROVIDERS: ADMIT Student in an Organized Health Care Education/Training Program; ATTEND Student in an Organized Health Care Education/Training Program
DX: F43.21 Adjustment disorder with depressed mood (principal); R45.851 Suicidal ideations; E11.9 Type 2 diabetes mellitus without complications; R00.1 Bradycardia, unspecified; F20.9 Schizophrenia, unspecified; I10 Essential (primary) hypertension; E03.9 Hypothyroidism, unspecified; Z79.4 Long term (current) use of insulin; G47.9 Sleep disorder, unspecified; E66.9 Obesity, unspecified; Z91.5 Personal history of self-harm; Z68.36 Body mass index [BMI] 36.0-36.9, adult; Z79.899 Other long term (current) drug therapy
CPT/HCPCS: 80048; 82948; 83036; 84443; 85027; 93005; J1815